=== PATIENT | female | born 1980 | race Two or more races ===

== ENCOUNTER 2021-10-12 19:11 | Emergency (ER) | payer MEDICAID ==
[~2021-10-12] VITALS: Ht 172.7 cm; Wt 96.6 kg
--- NOTE | 2021-10-12 20:24 | NUR ---
Patient is a/ox4, NAD noted. Patient denies SOB
--- NOTE | 2021-10-12 20:57 | NUR ---
Dr Serrano in room for SUNITHA
[2021-10-12] MEDS ORDERED: D-ME473S63 PO (21:44)
--- NOTE | 2021-10-12 21:51 | NUR ---
Patient discharged to home in stable condition. Written and verbal after care instructions given. Patient verbalizes understanding of instructions. Stressed follow up or return to ER for worsening s/s. Patient is a/ox4, NAD noted. no SOB noted
[2021-10-12 21:52] VITALS: BP 135/87
== END 2021-10-12 21:53 | disposition home or self-care (01) ==
LOC: ER 19:13
DX: R05.9 Cough, unspecified (principal); Z20.822 Contact with and (suspected) exposure to COVID-19
CPT/HCPCS: 71046; A4663

== ENCOUNTER 2022-01-05 04:01 | Emergency (ER) | payer MEDICAID, OTHER ==
[~2022-01-05] VITALS: Ht 170.2 cm; Wt 99.8 kg
[~2022-01-05 04:01] MED LIST: D-ME473S63 PO
--- NOTE | 2022-01-05 04:35 | NUR ---
Patient walked into ER with steady gait. A/O x3. NAD noted.
--- NOTE | 2022-01-05 05:28 | NUR ---
Dr. Serrano at bedside. MSE in progress.
[2022-01-05] MEDS ORDERED: KETOROLAC TROMETHAMINE 60 MG INJ IM ONE ×2 (05:45→06:07)
[2022-01-05] MEDS ORDERED: HYDROCHLOROTHIAZIDE 25 MG TABLET PO ONE (05:45)
[2022-01-05] MEDS ORDERED: HYDROCHLOROTHIAZIDE 25 MG TABLET ONE (05:46)
[2022-01-05 05:52] LABS: HEMATOCRIT 36.2 % (31.2-41.9); MEAN CORPUSCULAR HEMOGLOBIN 23.3 uug (24.7-32.8); MEAN CORPUSCULAR VOLUME 71.4 fL (75.5-95.3); PLATELET COUNT (AUTO) 269 K/uL (179-408)
[2022-01-05 05:55] LABS: CARBON DIOXIDE 28 mmol/L (21-32); CHLORIDE 103 mmol/L (98-107); CREATININE 0.6 mg/dL (0.6-1.3); GLUCOSE 97 mg/dL (74-106); POTASSIUM 3.4 mmol/L (3.5-5.1); UREA NITROGEN, BLOOD 9 mg/dL (7-18)
[2022-01-05 06:01] LABS: ALANINE AMINOTRANSFERASE 34 U/L (14-59); ALKALINE PHOSPHATASE 99 U/L (50-136); ASPARTATE AMINOTRANSFERASE 15 U/L (15-37); BILIRUBIN,TOTAL 0.3 mg/dL (0.2-1.0); LIPASE 62 U/L (73-393); TOTAL PROTEIN, SERUM 7.3 g/dL (6.4-8.2)
[2022-01-05 06:02] LABS: *BILIRUBIN,URIN NEGATIVE (NEGATIVE); *BLOOD, URINE 1+ (NEGATIVE); *CLARITY,URINE CLOUDY (CLEAR); *COLOR,URINE YELLOW (YELLOW); *KETONES,URINE NEGATIVE (NEGATIVE); *UROBILINOGEN,URINE 0.2 E.U./dl (NORMAL); LEUKOCYTE ESTERASE ,URINE 1+ (NEGATIVE); NITRITE, URINE POSITIVE (NEGATIVE); PH,URINE 6.5 (5.0-8.0); UGLUCOSE NEGATIVE (NEGATIVE)
[2022-01-05 06:02] LABS: BILIRUBIN,DIRECT < 0.1 mg/dL (0.0-0.2)
[2022-01-05 06:03] LABS: *URINE HCG, QUAL NEGATIVE (NEGATIVE)
[2022-01-05] MEDS ORDERED: NITROFURANTOIN/NITROFURAN MAC 100 MG CAPSULE PO ONE ×2 (06:15→06:16)
[2022-01-05] MEDS ORDERED: PHENAZOPYRIDINE HCL 100 MG TABLET PO ONE (06:15)
[2022-01-05] MEDS ORDERED: PHENAZOPYRIDINE HCL 100 MG TABLET ONE (06:17)
[2022-01-05 06:46] LABS: BACTERIA,URINE MANY /HPF (NONE SEEN); SQUAMOUS EPITHELIAL CELL,UR FEW /HPF (NONE SEEN)
[2022-01-05] MEDS ORDERED: HYDR25TA4 PO (06:54)
[2022-01-05] MEDS ORDERED: PHEN-705 PO (06:54)
[2022-01-05] MEDS ORDERED: NITR100C11 PO (06:54)
--- NOTE | 2022-01-05 07:00 | NUR ---
Patient discharged to home in stable condition. A/O x 4. NAD noted. Ambulatory with steady gait. All belongings with patient. Written and verbal after care instructions given. Patient verbalizes understanding of instructions. Stressed follow up or return to ER for worsening s/s.
[2022-01-05 07:04] VITALS: BP 166/93
[2022-01-05] MEDS ORDERED: AMLO-212 PO (12:50)
[2022-01-05] MEDS ORDERED: EPIN0.3P3 IM (12:50)
[2022-01-05] MEDS ORDERED: PRED20TA PO (12:50)
== END 2022-01-05 07:00 | disposition home or self-care (01) ==
LOC: ER 04:08
DX: R10.32 Left lower quadrant pain (principal); N39.0 Urinary tract infection, site not specified; I10 Essential (primary) hypertension
CPT/HCPCS: 99284; 80076; 80048; 81001; 84703; 83690; 85025; 87086; 84702; 36415; 96372; J1885; A4663

== ENCOUNTER 2022-01-05 11:42 | Emergency (ER) | payer MEDICAID, OTHER ==
[~2022-01-05] VITALS: Ht 170.2 cm; Wt 99.8 kg
[~2022-01-05 11:42] MED LIST changes: +HYDR25TA4 PO; +NITR100C11 PO; +PHEN-705 PO
[2022-01-05] MEDS ORDERED: predniSONE 20 MG TABLET ONE (12:43)
[2022-01-05] MEDS ORDERED: predniSONE 20 MG TABLET PO ONE (12:45)
[2022-01-05] MEDS ORDERED: EPIN0.3P3 IM (12:50)
[2022-01-05] MEDS ORDERED: AMLO-212 PO (12:50)
[2022-01-05] MEDS ORDERED: PRED20TA PO (12:50)
--- NOTE | 2022-01-05 13:26 | NUR ---
Patient discharged to home in stable condition. Written and verbal after care instructions given. Patient verbalizes understanding of instructions. Stressed follow up or return to ER for worsening s/s.
[2022-01-05 13:28] VITALS: BP 159/98
== END 2022-01-05 13:29 | disposition home or self-care (01) ==
LOC: ER 11:42
DX: T78.40XA Allergy, unspecified, initial encounter (principal); X58.XXXA Exposure to other specified factors, initial encounter; I10 Essential (primary) hypertension; N39.0 Urinary tract infection, site not specified
CPT/HCPCS: 99283; J7512; A4663

== ENCOUNTER 2023-08-04 04:21 | Emergency (ER) | payer OTHER ==
[~2023-08-04] VITALS: Ht 172.7 cm; Wt 90.7 kg
[~2023-08-04 04:21] MED LIST changes: +AMLO-212 PO; +EPIN0.3P3 IM; +PRED20TA PO
[2023-08-04] MEDS: KETOROLAC TROMETHAMINE 30 MG INJ IM ONE (05:15)
[2023-08-04] MEDS: CLONIDINE HCL 0.1 MG TABLET PO ONE ×2 (05:15→06:23)
[2023-08-04] MEDS ORDERED: KETOROLAC TROMETHAMINE 30 MG INJ ONE (05:22)
[2023-08-04] MEDS ORDERED: CLONIDINE HCL 0.1 MG TABLET ONE ×2 (05:22→06:18)
[2023-08-04 05:55] LABS: BASOPHILS # (AUTO) 0.1 K/UL (0.0-0.2); BASOPHILS % (AUTO) 1.1 % (0.0-2.0); EOSINOPHILS # (AUTO) 0.1 K/uL (0.0-0.7); EOSINOPHILS % (AUTO) 1.2 % (0.0-7.0); HEMATOCRIT 38.9 % (31.2-41.9); LYMPHOCYTES # (AUTO) 1.5 K/uL (0.8-4.8); LYMPHOCYTES % (AUTO) 26.6 % (20.5-51.5); MEAN CORPUSCULAR HEMOGLOBIN 24.4 uug (24.7-32.8); MEAN CORPUSCULAR HGB CONC 33 g/dL (32.3-35.6); MONOCYTES # (AUTO) 0.3 K/uL (0.1-1.30); MONOCYTES % (AUTO) 5.3 % (0.0-11.0); NEUTROPHILS # (AUTO) 3.8 K/uL (1.8-8.9); NEUTROPHILS % (AUTO) 65.8 % (38.5-71.5); PLATELET COUNT (AUTO) 264 K/uL (179-408); RED BLOOD CELL COUNT(AUTO) 5.33 MIL/uL (3.63-4.92); RED CELL DISTRIBUTION WIDTH 16.2 % (12.3-17.7); WHITE BLOOD COUNT (AUTO) 5.8 K/uL (3.8-11.8)
[2023-08-04 06:16] LABS: CALCIUM 8.4 mg/dL (8.5-10.1); CREATININE 0.6 mg/dL (0.6-1.3); POTASSIUM 3.3 mmol/L (3.5-5.1)
[2023-08-04 06:21] LABS: DIFFERENTIAL COMMENT 1
[2023-08-04 06:23] VITALS: BP 154/103
[2023-08-04] MEDS ORDERED: CYCL5TAB PO (06:23)
[2023-08-04] MEDS ORDERED: KETO10TA2 PO (06:23)
[2023-08-04] MEDS ORDERED: POTASSIUM CHLORIDE 20 MEQ TAB.PRT.SR ONE (06:26)
[2023-08-04 06:27] LABS: *URINE HCG, QUAL NEGATIVE (NEGATIVE)
[2023-08-04 06:28] LABS: ALBUMIN 3.5 g/dL (3.4-5.0); BILIRUBIN,TOTAL 0.3 mg/dL (0.2-1.0); TOTAL PROTEIN, SERUM 7.4 g/dL (6.4-8.2)
[2023-08-04 06:29] LABS: *BILIRUBIN,URIN NEGATIVE (NEGATIVE); *CLARITY,URINE CLEAR (CLEAR); *COLOR,URINE YELLOW (YELLOW); *KETONES,URINE NEGATIVE (NEGATIVE); *PROTEIN,URINE NEGATIVE (NEGATIVE); *UROBILINOGEN,URINE 0.2 E.U./dl (NORMAL); LEUKOCYTE ESTERASE ,URINE 3+ (NEGATIVE); NITRITE, URINE NEGATIVE (NEGATIVE); UGLUCOSE NEGATIVE (NEGATIVE)
[2023-08-04] MEDS: POTASSIUM CHLORIDE 20 MEQ TAB.PRT.SR PO ONE (06:33)
[2023-08-04 06:38] LABS: *BLOOD, URINE TRACE (NEGATIVE)
[2023-08-04 06:41] LABS: *AMPHETAMINE, URINE NEGATIVE (NEGATIVE); *BARBITURATE, URINE NEGATIVE (NEGATIVE); *BENZODIAZEPINE, URINE NEGATIVE (NEGATIVE); *CANNABINOID, URINE NEGATIVE (NEGATIVE); *COCCAINE, URINE NEGATIVE (NEGATIVE); *OPIATE, URINE NEGATIVE (NEGATIVE); *PHENCYCLIDINE SCREEN,URINE NEGATIVE (NEGATIVE)
[2023-08-04 06:42] LABS: FENTANYL, URINE NEGATIVE (NEGATIVE)
[2023-08-04 06:57] LABS: BACTERIA,URINE FEW /HPF (NONE SEEN); RBC,URINE 0-3 /HPF (0-3); SQUAMOUS EPITHELIAL CELL,UR FEW /HPF (NONE SEEN)
[2023-08-04 07:45] VITALS: O2SAT 98
[2023-08-04] MEDS ORDERED: SWABABLE VALVE TRANSFER SET EA MC ONE (07:48)
[2023-08-04] MEDS ORDERED: IOHEXOL 300MG/ML 100 ML INFUS..BTL ONE (07:48)
[2023-08-04] MEDS ORDERED: IV NORMAL SALINE 250 ML IV ONE (07:49)
[2023-08-04 08:25] LABS: BASOPHILS % (MANUAL) 1 % (0-2); EOSINOPHILS % (MANUAL) 2 % (0-8); LYMPHOCYTES % (MANUAL) 26 % (20-40); MONOCYTES % (MANUAL) 6 % (2-10); NEUTROPHILS % (MANUAL) 65 % (42-75); PLATELET ESTIMATE ADEQUATE
[2023-08-04 08:26] LABS: ANISOCYTOSIS 1+
[2023-08-04] MEDS ORDERED: DOXY100C5 PO (10:59)
[2023-08-04] MEDS ORDERED: IBUP-1957 PO (10:59)
[2023-08-04] MEDS: IBUPROFEN 800 MG TABLET PO ONE (11:09)
[2023-08-04] MEDS ORDERED: DOXYCYCLINE HYCLATE 100 MG TABLET ONE (11:12)
[2023-08-04] MEDS: DOXYCYCLINE HYCLATE 100 MG TABLET PO ONE (11:14)
== END 2023-08-04 11:15 | disposition home or self-care (01) ==
LOC: ER 04:24
DX: I10 Essential (primary) hypertension (principal); M54.50 Low back pain, unspecified; R10.2 Pelvic and perineal pain; Z79.899 Other long term (current) drug therapy
CPT/HCPCS: 36415; 70030-TC; 71045; 72131; 84484; 84703; 85025; 93005; A4606; A4663; J1885; Q9967

== ENCOUNTER 2024-02-03 04:20 | Emergency (ER) | payer OTHER ==
[~2024-02-03] VITALS: Ht 172.7 cm; Wt 105.7 kg
[~2024-02-03 04:20] MED LIST changes: +DOXY100C5 PO; +IBUP-1957 PO
[2024-02-03] MEDS ORDERED: DICYCLOMINE HCL 20 MG TABLET ONE (04:40)
[2024-02-03] MEDS ORDERED: ONDANSETRON ODT 4 MG TAB.RAPDIS ONE (04:40)
[2024-02-03] MEDS ORDERED: PANTOPRAZOLE SODIUM 40 MG VIAL ONE (04:40)
[2024-02-03] MEDS: ONDANSETRON HCL 4 MG TABLET PO ONE (04:50)
[2024-02-03] MEDS: DICYCLOMINE HCL 20 MG TABLET PO STA (04:50)
[2024-02-03 04:58] LABS: BASOPHILS % (AUTO) 0.3 % (0.0-2.0); EOSINOPHILS % (AUTO) 0.2 % (0.0-7.0); HEMATOCRIT 44.1 % (31.2-41.9); HEMOGLOBIN 14.8 g/dL (10.9-14.3); LYMPHOCYTES # (AUTO) 0.7 K/uL (0.8-4.8); MEAN CORPUSCULAR HEMOGLOBIN 25.9 uug (24.7-32.8); MEAN CORPUSCULAR HGB CONC 34 g/dL (32.3-35.6); MEAN CORPUSCULAR VOLUME 77.2 fL (75.5-95.3); MONOCYTES # (AUTO) 0.4 K/uL (0.1-1.30); MONOCYTES % (AUTO) 2.9 % (0.0-11.0); NEUTROPHILS # (AUTO) 13.4 K/uL (1.8-8.9); NEUTROPHILS % (AUTO) 91.6 % (38.5-71.5); PLATELET COUNT (AUTO) 256 K/uL (179-408); RED BLOOD CELL COUNT(AUTO) 5.71 MIL/uL (3.63-4.92); RED CELL DISTRIBUTION WIDTH 14.6 % (12.3-17.7); WHITE BLOOD COUNT (AUTO) 14.6 K/uL (3.8-11.8)
[2024-02-03 04:59] LABS: DIFFERENTIAL COMMENT 1
[2024-02-03] MEDS: IV NORMAL SALINE 500 ML BAG IV ONE (05:00)
[2024-02-03] MEDS: PANTOPRAZOLE SODIUM IV 40 MG in IV DEXTROSE 5% 100 ML IV ONE (05:00)
[2024-02-03 05:11] LABS: CALCIUM 8.8 mg/dL (8.5-10.1); CREATININE 0.7 mg/dL (0.6-1.3); POTASSIUM 2.8 mmol/L (3.5-5.1)
[2024-02-03 05:16] LABS: ALBUMIN 3.9 g/dL (3.4-5.0); BILIRUBIN,TOTAL 0.6 mg/dL (0.2-1.0); MAGNESIUM 1.7 mg/dL (1.8-2.4); TOTAL PROTEIN, SERUM 8.3 g/dL (6.4-8.2)
[2024-02-03 05:28] LABS: C-REACTIVE PROTEIN 0.43 mg/dL (0.00-0.30)
[2024-02-03] MEDS ORDERED: MAGNESIUM OXIDE 400 MG TABLET PO ONE (05:30)
[2024-02-03] MEDS: POTASSIUM CHLORIDE 50 ML IV SCH (05:40)
[2024-02-03] MEDS ORDERED: POTASSIUM CHLORIDE 50 ML ONE (05:57)
[2024-02-03] MEDS ORDERED: PANT40TA2 PO (06:07)
[2024-02-03] MEDS ORDERED: DICY10CA13 PO (06:07)
[2024-02-03] MEDS ORDERED: ONDA4TAB5 PO (06:07)
[2024-02-03] MEDS ORDERED: IV NORMAL SALINE 250 ML IV ONE (06:23)
[2024-02-03] MEDS ORDERED: MAGNESIUM SULFATE/D5W 100 ML ONE (06:23)
[2024-02-03] MEDS ORDERED: SWABABLE VALVE TRANSFER SET EA MC ONE (06:23)
[2024-02-03] MEDS ORDERED: IOHEXOL 300MG/ML 100 ML INFUS..BTL ONE (06:23)
[2024-02-03] MEDS: POTASSIUM CHLORIDE 20 MEQ POWDER PACKET GT ONE (06:30)
[2024-02-03] MEDS: MAGNESIUM SULFATE/D5W 100 ML IV SCH (06:40)
[2024-02-03 07:33] LABS: *BILIRUBIN,URIN NEGATIVE (NEGATIVE); *BLOOD, URINE 1+ (NEGATIVE); *CLARITY,URINE CLEAR (CLEAR); *COLOR,URINE YELLOW (YELLOW); *KETONES,URINE NEGATIVE (NEGATIVE); *PROTEIN,URINE NEGATIVE (NEGATIVE); *UROBILINOGEN,URINE 0.2 E.U./dl (NORMAL); LEUKOCYTE ESTERASE ,URINE NEGATIVE (NEGATIVE); NITRITE, URINE NEGATIVE (NEGATIVE); UGLUCOSE NEGATIVE (NEGATIVE)
[2024-02-03 07:36] LABS: BACTERIA,URINE FEW /HPF (NONE SEEN); SQUAMOUS EPITHELIAL CELL,UR FEW /HPF (NONE SEEN); WBC,URINE 0-3 /HPF (0-3)
[2024-02-03 07:37] LABS: *URINE HCG, QUAL NEGATIVE (NEGATIVE)
[2024-02-03] MEDS ORDERED: AZIT500T PO (08:45)
[2024-02-03 08:56] VITALS: BP 138/87; O2SAT 96
== END 2024-02-03 08:57 | disposition home or self-care (01) ==
LOC: ER 04:24
DX: R11.2 Nausea with vomiting, unspecified (principal); R19.7 Diarrhea, unspecified; E83.42 Hypomagnesemia; E87.6 Hypokalemia; I10 Essential (primary) hypertension; R10.2 Pelvic and perineal pain; N20.0 Calculus of kidney; Z79.899 Other long term (current) drug therapy; Z79.52 Long term (current) use of systemic steroids; D72.829 Elevated white blood cell count, unspecified; Z90.49 Acquired absence of other specified parts of digestive tract
CPT/HCPCS: 99285; 74177; 96365; 96367; 96366; 80053; 81001; 84703; 83690; 83735; 85025; 86140; 84702; 36415; 96368; J3475; Q9967; J2470 ×2; J3480 ×2; J7040; A4606; A4663; Q0162